=== PATIENT | male | born 1990 | race Caucasian/White ===

== ENCOUNTER → 2016-10-23 | Outpatient (CLI) | payer BC ==
[~2016-10-23] MED LIST: AMOX875T PO
== END | disposition home or self-care (01) ==
LOC: C.LABBC 13:47
PROVIDERS: ATTEND Family Medicine
DX: Z13.220 Encounter for screening for lipoid disorders (principal); Z13.1 Encounter for screening for diabetes mellitus

== ENCOUNTER 2016-12-17 23:19 | Emergency (ER) | payer BC ==
[~2016-12-17] VITALS: Ht 182.9 cm; Wt 87.6 kg
[2016-12-17 23:28] VITALS: TEMP 37.2; Ht 182.9 cm; Wt 87.6 kg
[2016-12-17] MEDS ORDERED: AMOX875T PO (23:50)
[2016-12-18] MEDS ORDERED: AMOXICIL/CLAVU 875MG HOME PACK PO ONE
--- NOTE | 2016-12-18 | EMERGENCY ROOM VISIT NOTE ---
History First contact with patient: 23:39 Chief Complaint: FINGER PAIN Stated Complaint: SWELLING IN FINGER History of Present Illness The patient is a 26 year old male who presents to the Emergency Room with complaints of pain and swelling of his right ring finger. The patient states that he has had some mild pain for the past day, but this evening he became very red and swollen. He did note a purulent drainage when squeezing it earlier tonight. He attempted to soak it at home without relief. He has not had fever or chills. He rates his discomfort a 5/10. He states that he does bite his nails, and this may have caused his symptoms. Review of Systems More than 10 systems were reviewed and otherwise negative with the exception of history of present illness. Past Medical/Surgical History No chronic medical disease Family History No pertinent family history Social History Smoking Status: Never Smoker Current/Historical Medications Scheduled Amoxicillin & Pot Clavulanate (Augmentin 875-125 mg), 1 TAB PO BID Physical Exam Vital Signs Date Time Temp Pulse Resp B/P Pulse Ox O2 Delivery O2 Flow Rate FiO2 12/17/16 23:28 37.2 69 18 158/91 99 Room Air Physical Exam VITALS: Vitals are noted on the nurse's note and reviewed by myself. Vital signs stable. GENERAL: Well-developed, well-nourished, white male, who is in no acute distress and resting comfortably. Patient is cooperative with the examination. HEART: Regular rate and rhythm without murmurs gallops or rubs. LUNGS: Clear to auscultation bilaterally without wheezes, rales or rhonchi. No retractions or accessory muscle use. MUSCULOSKELETAL: Erythema and edema is appreciated over the very distal medial aspect of the right fourth finger. This does appear consistent with a paronychia. No gross fluctuance or purulent drainage appreciated. No lymphangitic streaking. Neurovascular status is intact. [employer] Operator strength is 5/5. NEURO: Patient was alert and oriented to person place and time. CN II through XII grossly intact. Medical Decision & Procedures ED Course Physical exam and history were performed. Nursing notes and EMR were reviewed. Patient appears to have a paronychia of the right fourth finger. I was not able to express any purulent drainage for culture. I suspect the infection is from a mouth borne bacterium, and will start the patient on Augmentin. He is to use Epson soaks as well as bacitracin. He is to follow with his PCP with any ongoing or persisting symptoms. He was otherwise invited back to the ER with any new, worsening, or concerning symptoms. The chart was completed utilizing [employer] Speech Voice Recognition Software. Grammatical errors, random word insertions, pronoun errors, and incomplete sentences are an occasional consequence of this system due to software limitations, ambient noise, and hardware issues. Any formal questions or concerns about the content, text, or information contained within the body of this dictation should be directly addressed to the provider for clarification. . Medical Decision Differential diagnosis: Etiologies such as cellulitis, abscess, MRSA infection, DVT, necrotizing fasciitis, dermatitis, drug eruption, as well as others were entertained.. Impression Primary Impression: Paronychia of finger of right hand Departure Information Dispostion Home / Self-Care Condition GOOD Prescriptions Amoxicillin & Pot Clavulanate (Augmentin 875-125 mg) 1 Tab Tab 1 TAB PO BID for 7 Days, #14 TAB Prov: Kelvin Aguirre PA-C 12/17/16 Forms HOME CARE DOCUMENTATION FORM, IMPORTANT VISIT INFORMATION Patient Instructions [facility] Additional Instructions You were seen and evaluated today on an emergency basis only. This is not a substitute for, or an effort to provide, complete comprehensive medical care. It is not possible to recognize and treat all injuries or illnesses in a single emergency department visit. For this reason it is recommended that you followup with your primary care physician with any ongoing or persistent symptoms. Amoxicillin Clavulanate (Augmentin) 875mg: Take one pill twice daily for 7 days for your infection. All antibiotics can cause diarrhea. If this occurs and you feel worse or it does not resolve in 1-2 days follow up with your doctor or return to the Emergency Department as this could be signs of serious underlying problems. Any medication can cause an allergic reaction, stop the pills immediately and return to the ER for rash, hives, breathing difficulties, or swelling. You are welcome to return to the emergency department anytime with new, worsening, or concerning symptoms.
[2016-12-18 00:04] VITALS: BP 126/85; PULSE 82; O2SAT 99
== END 2016-12-17 23:58 | disposition home or self-care (01) ==
LOC: C.EDB 23:20 → C.EDC 23:58
DX: L03.011 Cellulitis of right finger (principal)